=== PATIENT | male | born 1980 | race Caucasian/White ===

== ENCOUNTER 2018-06-27 20:05 | Emergency (ER) | payer BC ==
[2018-06-27] MEDS ORDERED: Lidocaine 2% EPI 1:200000 MPF*10-20 ML VIAL INJ ONE (20:32)
[2018-06-27] MEDS ORDERED: Lidocaine 2% EPI 1:200000 MPF*10-20 ML VIAL ONE (20:34)
[2018-06-27] MEDS ORDERED: Tetan/Diph/Pertus SYR(Tdap)* 0.5 ML SYR(BOOSTRIX) use SYR IM ONE (20:51)
[2018-06-27] MEDS ORDERED: Cephalexin CAP* 500 MG PO ONE (20:52)
--- NOTE | 2018-06-27 20:52 | ED ---
Laceration/Wound HPI - HPI Summary HPI Summary: 37-year-old male presents with right sided facial laceration today. He states that he got headed butted by a cow. Area continues to bleed. Last tetanus was over 10 years ago. He has no medical conditions. No loss consciousness. No nausea and vomiting. Denies any headache. No neck pain. No dizziness. No change in vision. - History of Current Complaint Stated Complaint: HEAD INJURY PER PT Time Seen by Provider: 06/27/18 20:25 Pain Intensity: 0 - Allergy/Home Medications Allergies/Adverse Reactions: Allergies Allergy/AdvReac Type Severity Reaction Status Date / Time No Known Allergies Allergy Verified 06/27/18 20:10 PMH/Surg Hx/FS Hx/Imm Hx Endocrine/Hematology History: Denies: Hx Anticoagulant Therapy Respiratory History: Denies: Hx Asthma Infectious Disease History: No Infectious Disease History: Denies: Traveled Outside the [place] in Last 30 Days - Family History Known Family History: Positive: Non-Contributory - Social History Alcohol Use: Occasionally Substance Use Type: Reports: None Review of Systems Negative: Fever Negative: Chest Pain Negative: Shortness Of Breath Positive: Other - facial laceration Negative: Headache All Other Systems Reviewed And Are Negative: Yes Physical Exam Triage Information Reviewed: Yes Vital Signs On Initial Exam: Initial Vitals Temp Pulse Resp BP Pulse Ox 97.7 F 77 15 145/93 95 06/27/18 20:08 06/27/18 20:08 06/27/18 20:08 06/27/18 20:08 06/27/18 20:08 Vital Signs Reviewed: Yes Appearance: Positive: Well-Appearing Skin: Positive: Warm, Dry, Other - 3cm by 1/2cm laceration to right side of head Head/Face: Positive: Normal Head/Face Inspection, Other - contusion to right side of head Eyes: Positive: Normal, EOMI, CHARLES, Conjunctiva Clear ENT: Positive: Normal ENT inspection, Pharynx normal, TMs normal Respiratory/Lung Sounds: Positive: Clear to Auscultation, Breath Sounds Present Cardiovascular: Positive: Normal, RRR Musculoskeletal: Positive: Normal Neurological: Positive: Sensory/Motor Intact, Alert, Oriented to Person Place, Time, CN Intact II-III Psychiatric: Positive: Normal Procedures - Laceration/Wound Repair 1 Location: face Description: Linear Length, Depth and Shape: 3cm by 1/2cm Irrigated w/ Saline (ccs): 300 Closure: Single Layer Suture Type: Prolene Number of Sutures: 4 Sterile Dressing Applied?: No - bandaide Diagnostics - Vital Signs Vital Signs Temp Pulse Resp BP Pulse Ox 06/27/18 20:08 97.7 F 77 15 145/93 95 - Laboratory Lab Statement: Any lab studies that have been ordered have been reviewed, and results considered in the medical decision making process. Laceration Repair Course/Dx - Course Course Of Treatment: 37-year-old male presents with right sided facial laceration today. He states that he got headed butted by a cow. Area continues to bleed. Last tetanus was over 10 years ago. He has no medical conditions. No loss consciousness. No nausea and vomiting. Denies any headache. No neck pain. No dizziness. No change in vision. On exam has normal neuro exam. Has 3cm by 1/2cm laceration of forehead. Clean area and placed 4 sutures. Told to keep area clean and dry. Will place on Keflex. Patient understands agrees plan. - Differential Dx Differental Diagnoses: Abrasion, Avulsion, Laceration - Clinical Impression Provider Diagnoses: Facial laceration Discharge - Sign-Out/Discharge Documenting (check all that apply): Patient Departure Patient Received Moderate/Deep Sedation with Procedure: No - Discharge Plan Condition: Good Disposition: HOME Prescriptions: Cephalexin CAP* [Keflex CAP*] 500 mg PO BID #9 cap Patient Education Materials: Care For Your Stitches (ED) Referrals: [facility] [Outside] Additional Instructions: Keep area clean and dry for 24 hours Take Tylenol or ibuprofen for pain every 6 hours take keflex twice a day for [address] ice on area Return to ED or primary for suture removal in 5 days Return to ED if develop signs of infection such as fever, spreading redness, or pus formation - Billing Disposition and Condition Condition: GOOD Disposition: Home
[2018-06-27 21:03] VITALS: BP 156/82
== END 2018-06-27 21:01 | disposition home or self-care (01) ==
LOC: ED 20:05
DX: S01.81XA Laceration without foreign body of other part of head, initial encounter (principal); W55.22XA Struck by cow, initial encounter; Y92.79 Other farm location as the place of occurrence of the external cause; Z23 Encounter for immunization
CPT/HCPCS: 12013; 90471; 90715; 99282; A9270-GY